=== PATIENT | male | born 1990 ===

== ENCOUNTER 2025-03-04 03:12 | Inpatient (IN) | payer OTHER ==
[~2025-03-04] VITALS: Ht 175.3 cm; Wt 63.5 kg
[2025-03-04] VITALS (9 sets, daily range): BP systolic 127–149; BP diastolic 72–94; PULSE 60–79; RESP 16–18; TEMP 98.1–98.4; O2SAT 98–99
[2025-03-04 03:52] LABS: BASOPHILS % 0.5 % (0.0-1.0); EOSINOPHILS % 0.5 % (0.0-6.0); LYMPHOCYTES % 14.1 % (18.0-39.1); MONOCYTES % 4.5 % (4.4-11.3); NEUTROPHILS % 80.2 % (38.7-80.0); RED CELL DISTRIBUTION WIDTH 12.3 % (11.7-14.4)
[2025-03-04 04:07] LABS: EST GLOMERULAR FILTRATION RATE 102.0 ML/MIN (>=60)
[2025-03-04] MEDS: ONDANSETRON HCL INJ 2MG/ML 2ML 2 MG/ML VIAL IV STA (04:32)
[2025-03-04] MEDS: SODIUM CHLORIDE 0.9% 1000ML 1,000 ML IV ONE (04:32)
[2025-03-04] MEDS: KETOROLAC TROMETHAMINE 30 MG/ML VIAL IV STA (05:08)
[2025-03-04] MEDS ORDERED: IOPAMIDOL 370 MG/ML 100 ML INFUS..BTL INJ ONE (05:55)
[2025-03-04] MEDS: Morphine 4mg INJECTION 4 MG/ML INJ IV PRN (06:19)
[2025-03-04] MEDS: SODIUM CHLORIDE 0.9% 1000ML 1,000 ML IV SCH (10:03)
[2025-03-04] MEDS: ONDANSETRON HCL INJ 2MG/ML 2ML 2 MG/ML VIAL IV PRN ×2 (10:10→18:21)
[2025-03-04] MEDS ORDERED: GATTEX5 MG SC (11:21)
[2025-03-04] MEDS ORDERED: HYDROCODON-ACE1 EAC9 PO (11:21)
[2025-03-04] MEDS ORDERED: NEURONTIN300 MG PO (11:21)
[2025-03-04] MEDS: HYDROMORPHONE 1MG/1ML INJ IV PRN (14:05)
[2025-03-04] MEDS ORDERED: TIZANIDINE HCL4 MG PO (14:11)
[2025-03-04] MEDS ORDERED: DICYCLOMINE HCL20 MG PO (14:11)
[2025-03-04] MEDS ORDERED: ONDANSETRON ODT4 MG PO (14:11)
[2025-03-04] MEDS ORDERED: ALBUTEROL/IPRATROPIUM 3 ML NEB NEB PRN (15:15)
[2025-03-04] MEDS ORDERED: SIMETHICONE 80 MG CHEW PO PRN (15:15)
[2025-03-04] MEDS ORDERED: DIPHENHYDRAMINE HCL 25 MG CAP PO PRN (15:15)
[2025-03-04] MEDS ORDERED: HYDRALAZINE HCL 20 MG/ML VIAL IV PRN (15:15)
[2025-03-04] MEDS ORDERED: DEXTROSE 50% SYRINGE 50 ML IV PRN (15:15)
[2025-03-04] MEDS ORDERED: ACETAMINOPHEN 325 MG TAB PO PRN (15:15)
[2025-03-04] MEDS ORDERED: BENZONATATE 100 MG CAP PO PRN (15:15)
[2025-03-04] MEDS ORDERED: DOCUSATE SODIUM 100 MG CAP PO PRN (15:15)
[2025-03-04] MEDS ORDERED: POTASSIUM CHLORIDE 20 MEQ TAB CR PO PRN (15:15)
[2025-03-04] MEDS: LORAZEPAM INJ 2 MG/ML VIAL IV PRN (16:13)
[2025-03-04] MEDS: D5NS/KCL 20MEQ 1,000 ML IV SCH (16:42)
[2025-03-04] MEDS: ENOXAPARIN SOD INJ 40 MG/0.4 ML SYR SC SCH (16:46)
[2025-03-04] MEDS ORDERED: SODIUM CHLORIDE 0.9% 1000ML 1,000 ML IV SCH (18:00)
[2025-03-04] MEDS: BISACODYL 10 MG SUPP PR ONE (20:54)
[2025-03-04] MEDS: MELATONIN 5 MG TABLET PO PRN (22:31)
[2025-03-05] VITALS (8 sets, daily range): BP systolic 112–134; BP diastolic 69–88; PULSE 51–71; RESP 16–21; TEMP 97.7–98.6; O2SAT 98–100
[2025-03-05 06:19] LABS: BASOPHILS % 0.7 % (0.0-1.0); EOSINOPHILS % 4.2 % (0.0-6.0); LYMPHOCYTES % 33.8 % (18.0-39.1); MONOCYTES % 8.5 % (4.4-11.3); NEUTROPHILS % 52.8 % (38.7-80.0); RED CELL DISTRIBUTION WIDTH 12.3 % (11.7-14.4)
[2025-03-05 06:46] LABS: PHOSPHORUS 3.9 MG/DL (2.3-4.7)
[2025-03-05 06:48] LABS: EST GLOMERULAR FILTRATION RATE 104.0 ML/MIN (>=60)
[2025-03-05] MEDS: PANTOPRAZOLE SOD 40 MG TABEC PO SCH (08:04)
[2025-03-05] MEDS ORDERED: LORAZEPAM 0.5 MG TAB PO PRN (12:00)
[2025-03-05] MEDS: HYDROCODONE/APAP 10MG-325MG TAB PO PRN (13:33)
[2025-03-05] MEDS: Morphine 2mg Syringe 2 MG/ML SYR IV PRN (15:51)
[2025-03-05] MEDS: LACTULOSE SYRUP 20 GM/30 ML UDC PO SCH (18:06)
[2025-03-06] VITALS (7 sets, daily range): BP systolic 113–130; BP diastolic 69–99; PULSE 53–77; RESP 16–18; TEMP 97–98.4; O2SAT 99–100
[2025-03-06 06:32] LABS: BASOPHILS % 0.6 % (0.0-1.0); EOSINOPHILS % 3.0 % (0.0-6.0); LYMPHOCYTES % 21.5 % (18.0-39.1); MONOCYTES % 6.3 % (4.4-11.3); NEUTROPHILS % 68.3 % (38.7-80.0); RED CELL DISTRIBUTION WIDTH 12.1 % (11.7-14.4)
[2025-03-06 07:00] LABS: EST GLOMERULAR FILTRATION RATE 111.0 ML/MIN (>=60)
[2025-03-06] MEDS ORDERED: GABAPENTIN 300 MG CAP PO SCH (21:00)
[2025-03-06] MEDS ORDERED: TIZANIDINE HCL 4 MG TAB PO SCH (21:00)
== END 2025-03-06 18:31 | disposition home or self-care (01) | DRG 389 ==
LOC: ER 03:35 → ERHOLD 05:26 → MED/SURG2 08:01
PROVIDERS: ADMIT Internal Medicine; ATTEND Internal Medicine
DX: K56.1 Intussusception (principal); K90.821 Short bowel syndrome with colon in continuity; Z93.2 Ileostomy status; G89.4 Chronic pain syndrome; F41.9 Anxiety disorder, unspecified; Z90.49 Acquired absence of other specified parts of digestive tract; Z79.899 Other long term (current) drug therapy
CPT/HCPCS: 36415; 74018; 74177; 80053; 83690; 83735; 84100; 85025; 94799; 99284; J0360; J1171; J1650; J1885; J2060; J2270; J2405; J2470; J7030; Q9967